=== PATIENT | male | born 1970 | race African-American/Black ===

== ENCOUNTER → 2019-01-05 | Outpatient (CLI) | payer BC ==
[~2019-01-05] MED LIST: AMITIZA 24 MCG24 MC1 PO; IBUPROFEN 800800 M1 PO; LISINOPRIL20 MG PO; LISINOPRIL5 MG PO; MECLIZINE HCL25 M1 PO; MUCINEX600 MG PO; NEXIUM40 MG PO; NORCO 5-325 TA1 EACH PO; NORVASC 5 MG TAB5 MG PO; PERCOCET 5-3251 EACH PO; PROTONIX40 MG PO; TRAMADOL 50 MG50 MG PO; TRENTAL400 MG PO; ZANTAC 150MG T150 M1 PO; ZOFRAN4 MG PO
== END ==
LOC: RAD 15:36
DX: R06.02 Shortness of breath (principal)

== ENCOUNTER → 2020-03-22 | Outpatient (CLI) | payer BC | LOC: LAB 08:26 | PROVIDERS: ATTEND Family Medicine | DX: Z20.822 Contact with and (suspected) exposure to COVID-19 (principal) ==

== ENCOUNTER 2020-03-27 13:11 | Emergency (ER) | payer BC ==
[~2020-03-27] VITALS: Ht 188 cm; Wt 122.5 kg
[2020-03-27] MEDS ORDERED: PROAIR HFA8.5 GM INH (13:16)
[2020-03-27] MEDS ORDERED: PERCOCET 10-321 EACH PO (13:16)
[2020-03-27] MEDS ORDERED: CEFUROXIME250 MG PO (13:16)
[2020-03-27 13:56] LABS: ABSOLUTE NEUTROPHILS 2.9 thou/uL (1.4-8.2); BASOPHILS 0.6 % (0.0-2.0); EOSINOPHILS 0.1 % (0.0-3.0); HEMATOCRIT 48.4 % (42.0-52.0); HEMOGLOBIN 15.9 gm/dL (14.0-18.0); LYMPHOCYTES 32.5 % (24.0-44.0); MCH 28.3 pg (26.0-34.0); MCHC 32.9 g/dL (28.0-37.0); MCV 86.1 fL (80.0-100.0); MONOCYTES 9.1 % (1.0-8.0); PLATELET COUNT 222 thou/uL (150-400); POLYS 57.7 % (36.0-66.0); RBC 5.62 mil/uL (4.50-6.00); RDW 13.2 % (10.5-14.5)
[2020-03-27 14:04] LABS: ANION GAP 13 mmol/L (7-16); BUN 14 mg/dL (7-18); CALCIUM 9.7 mg/dL (8.5-10.1); CHLORIDE 95 mmol/L (98-107); CO2 25 mmol/L (21-32); CREATININE 1.3 mg/dL (0.7-1.3); GLUCOSE 278 mg/dL (74-106); POTASSIUM 4.4 mmol/L (3.5-5.1); SODIUM 133 mmol/L (136-145)
[2020-03-27 14:12] LABS: D-DIMER 0.47 ug/mLFEU (0.19-0.50); INR 1.1; PROTIME 11.4 Seconds (9.3-11.4)
[2020-03-27 14:13] LABS: ALBUMIN 3.9 g/dL (3.4-5.0); SGOT 34 U/L (15-37); SGPT 53 U/L (30-65); TOTAL BILIRUBIN 0.6 mg/dL (0.2-1.0); TOTAL PROTEIN 9.2 g/dL (6.4-8.2); TROPONIN-I <0.06 ng/mL (<0.06)
[2020-03-27] MEDS ORDERED: MEDROL DOSPAK21 TA1 PO (15:35)
[2020-03-27] MEDS ORDERED: AZITHROMYCIN 2250 MG PO (15:35)
[2020-03-27 16:00] VITALS: BP 100/68
--- NOTE | 2020-03-27 20:22 | NUR ---
POSITIVE COVID RESULTS CALLED TO THIS NURSE BY MARIAJOSE IN THE LAB AT 2020. WILL ATTEMPT TO REACH PATIENT
--- NOTE | 2020-03-27 21:01 | NUR ---
SPOKE WITH DL AND TO PROVIDE POSITIVE COVID TEST RESULTS. STATE UNDERSTANDING.
--- NOTE | 2020-03-28 07:35 | EKG ---
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 : 1970 Requested By: Freedom Perez Order Number: [id number] MD: Jayson Bynum Measurements Intervals [place] Rate: 105 P: 18 GA: 142 QRS: -40 QRSD: 91 T: -7 QT: 318 QTc: 421 Interpretive Statements Sinus tachycardia Left axis deviation Abnormal R-wave progression, late transition Borderline T abnormalities, inferior leads Baseline wander in lead(s) I,III,aVL,V6 Compared to ECG 03/15/2011 17:51:53 Left-axis deviation now present T-wave abnormality now present Sinus rhythm no longer present Electronically Signed On 03-28-2020 7:35:07 [employer]PECT[employer] by Jayson Bynum [email or web address] <ELECTRONICALLY SIGNED> By: Jayson Bynum MD, [facility] 03/28/20 0735 1320 1320 Jayson Bynum MD, [facility] /EPI
== END 2020-03-27 16:00 | disposition home or self-care (01) ==
LOC: ER 13:11
PROVIDERS: Emergency Medicine
DX: R06.00 Dyspnea, unspecified (principal); I10 Essential (primary) hypertension; M19.90 Unspecified osteoarthritis, unspecified site; Z20.822 Contact with and (suspected) exposure to COVID-19; Z79.2 Long term (current) use of antibiotics; Z79.899 Other long term (current) drug therapy